=== PATIENT | male | born 1935 | race Caucasian/White ===

== ENCOUNTER 2019-03-24 10:24 | Inpatient (IN) | payer MEDICARE ==
[~2019-03-24] VITALS: Ht 175.3 cm; Wt 79.4 kg
[2019-03-24 10:31] VITALS: BP 139/63
[2019-03-24] MEDS ORDERED: VENTOLIN HFA 1818 GM INH (10:37)
[2019-03-24] MEDS ORDERED: HYTRIN 2MG CAPSU2 M1 PO (10:38)
[2019-03-24] MEDS ORDERED: METOPROLOL SUCC25 M1 PO (10:39)
[2019-03-24] MEDS ORDERED: ATORVASTATIN CA40 MG PO (10:40)
[2019-03-24 10:52] LABS: HEMATOCRIT 37.1 % (42.0-52.0); HEMOGLOBIN 12.5 gm/dL (14.0-18.0); MCHC 33.7 g/dL (28.0-37.0); MCV 89.3 fL (80.0-100.0); MPV 7.2 fl. (7.2-11.1); NUCLEATED RBCS 0 /100WBC; PLATELET COUNT* 201 thou/uL (150-400); RBC 4.15 mil/uL (4.50-6.00); RDW-CV 13.6 % (10.5-14.5); WBC 8.3 thou/uL (4.0-11.0)
[2019-03-24 11:01] LABS: APTT 26.6 Seconds (25.0-31.3); INR 1.1; PROTIME 11.7 Seconds (9.20-11.50)
[2019-03-24 11:15] LABS: ALBUMIN 3.6 g/dL (3.4-5.0); ALKALINE PHOSPHATASE 66 U/L (46-116); ANION GAP 10 mmol/L (7-16); BUN 20 mg/dL (7-18); CALCIUM 8.5 mg/dL (8.5-10.1); CHLORIDE 104 mmol/L (98-107); CO2 26 mmol/L (21-32); CREATININE 1.4 mg/dL (0.6-1.3); GLUCOSE 154 mg/dL (70-99); LIPASE 87 U/L (73-393); MAGNESIUM 1.5 mg/dL (1.8-2.4); NT-PRO BRAIN NAT PEPTIDE 489 pg/mL (<300); POTASSIUM 3.9 mmol/L (3.5-5.1); SGOT 21 U/L (15-37); SGPT 26 U/L (30-65); SODIUM 140 mmol/L (136-145); TOTAL PROTEIN 6.6 g/dL (6.4-8.2); TROPONIN-I LEVEL <0.06 ng/mL (<0.06)
[2019-03-24 11:30] LABS: ABSOLUTE LYMPHOCYTES 0.5 thou/uL (0.8-5.3); ABSOLUTE MONOCYTES 0.5 thou/uL (0.0-1.2); ABSOLUTE NEUTROPHILS 7.3 thou/uL (1.6-8.1)
[2019-03-24 11:34] LABS: PLATELET ESTIMATE ADEQUATE; TOXIC GRANULATION 1+
[2019-03-24 15:41] VITALS: BP 139/63
[2019-03-24 15:50] VITALS: BP 119/52
--- NOTE | 2019-03-24 16:01 | EKG ---
[place] [address] ELECTROCARDIOGRAM REPORT Name: ANETA BYNUM Room: [place] [address] ADM IN [facility].#: [id number] Admission: 03/24/19 Attend Phys: Veronica Rollins MD Discharge: Date of : 37 Report #: [id number] THIS REPORT FOR: //name// 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
[2019-03-24 20:00] VITALS: BP 113/65
[2019-03-25 04:10] VITALS: BP 117/56
[2019-03-25 05:15] LABS: ABSOLUTE LYMPHOCYTES 0.4 thou/uL (0.8-5.3); ABSOLUTE MONOCYTES 0.6 thou/uL (0.0-1.2); ABSOLUTE NEUTROPHILS 8.7 thou/uL (1.6-8.1); BASOPHILS 0.1 %; HEMATOCRIT 34.2 % (42.0-52.0); HEMOGLOBIN 11.7 gm/dL (14.0-18.0); LYMPHOCYTES 4.1 %; MCH 30.2 pg (26.0-34.0); MCHC 34.2 g/dL (28.0-37.0); MCV 88.4 fL (80.0-100.0); MONOCYTES 6.4 %; MPV 7.6 fl. (7.2-11.1); NUCLEATED RBCS 0 /100WBC; PLATELET COUNT* 199 thou/uL (150-400); POLYS 89.4 %; RBC 3.87 mil/uL (4.50-6.00); RDW-CV 13.5 % (10.5-14.5); WBC 9.7 thou/uL (4.0-11.0)
[2019-03-25 05:17] LABS: URINE BILIRUBIN NEGATIVE (Negative); URINE BLOOD NEGATIVE (Negative); URINE CLARITY CLEAR; URINE COLOR YELLOW; URINE GLUCOSE-RANDOM 2+ (Negative); URINE KETONES TRACE (Negative); URINE LEUKOCYTES-REFLEX NEGATIVE (Negative); URINE NITRITE-REFLEX NEGATIVE (Negative); URINE PROTEIN TRACE (Negative); URINE SPECIFIC GRAVITY >= 1.030 (1.005-1.030); URINE UROBILINOGEN 0.2 E.U./dl (0.2-1.0)
[2019-03-25 05:37] LABS: CALCIUM 8.6 mg/dL (8.5-10.1); CREATININE 1.4 mg/dL (0.6-1.3); MAGNESIUM 2.5 mg/dL (1.8-2.4)
[2019-03-25 07:40] VITALS: BP 119/53
[2019-03-25 12:43] VITALS: BP 112/49
--- NOTE | 2019-03-25 13:56 | 2DMMODE ---
[place] [address] 2 D/M-MODE ECHOCARDIOGRAM Name: ANETA BYNUM Room: [address] IN [facility]#: [id number] Admission: 03/24/19 Attend Phys: Veronica Rollins MD Discharge: Date of : 37 Date of Service: 03/25/19 1356 Report #: [id number] THIS REPORT FOR: //name// APPROVED REPORT Study performed: 03/25/2019 11:01:02 EXAM: Comprehensive 2D, Doppler, and color-flow Echocardiogram Patient Location: In-Patient Room #: [facility] Status: routine BSA: 1.95 HR: 65 bpm BP: 119/53 mmHg Rhythm: NSR Other Information Study Quality: Excellent Indications Dyspnea 2D Dimensions IVSd: 12.26 (7-11mm) LVOT Diam: 23.47 (18-24mm) LVDd: 50.37 mm PWd: 11.71 (7-11mm) Ascending Ao: 38.02 (22-36mm) LVDs: 31.39 (25-40mm) Aortic Root: 32.34 mm Volumes Left Atrial Volume (Systole) LA ESV Index: 34.90 mL/m2 Aortic Valve AoV Peak Eleazar.: 1.61 m/s AO Peak Gr.: 10.33 mmHg LVOT Max P.30 mmHg AO Mean Gr.: 5.68 mmHg LVOT Mean P.46 mmHg LVOT Max V: 1.15 m/s AO V2 VTI: 33.87 cm LVOT Mean V: 0.71 m/s [place] (VTI): 3.56 cm2 LVOT V1 VTI: 27.89 cm AI Weld: 1.50 m/s2 AI PHT: 687.45 ms Mitral Valve E/A Ratio: 1.14 [place] [address] 2 D/M-MODE ECHOCARDIOGRAM Name: ANETA BYNUM Room: [address] IN [facility]#: [id number] Admission: 03/24/19 Attend Phys: Veronica Rollins MD Discharge: Date of : 37 Date of Service: 03/25/19 1356 Report #: [id number] MV Decel. Time: 188.55 ms MV E Max Eleazar.: 0.61 m/s MV PHT: 54.68 ms MVA (PHT): 4.02 cm2 TDI E/Lateral E': 6.10 E/Medial E': 6.10 Medial E' Eleazar.: 0.10 m/s Lateral E' Eleazar.: 0.10 m/s Pulmonary Valve PV Peak Eleazar.: 1.19 m/s PV Peak Gr.: 5.68 mmHg Tricuspid Valve RAP Estimate: 5.00 mmHg TR Peak Gr.: 29.34 mmHg RVSP: 34.00 mmHg PA Pressure: 34.00 mmHg Left Ventricle The left ventricle is normal size. There is normal LV segmental wall motion. Mild concentric left ventricular hypertrophy. Left ventricular systolic function is normal. The left ventricular ejection fraction is within the normal range. LVEF is 60-65%. The left ventricular diastolic function is normal. Right Ventricle The right ventricle is normal size. The right ventricular systolic function is normal. Atria Left atrium is mildly dilated. The right atrium size is normal. Aortic Valve Mild aortic valve sclerosis. Trace aortic regurgitation. There is no aortic valvular stenosis. Mitral Valve The mitral valve is normal in structure. There is no mitral valve regurgitation noted. No evidence of mitral valve stenosis. Tricuspid Valve The tricuspid valve is normal in structure. Mild tricuspid regurgitation. estimate pa pressure 35 [place] [address] 2 D/M-MODE ECHOCARDIOGRAM Name: ANETA BYNUM Room: [address]#: [id number] Admission: 03/24/19 Attend Phys: Veronica Rollins MD Discharge: Date of : 37 Date of Service: 03/25/19 1356 Report #: [id number] Pulmonic valve is not well visualized. There is no pulmonic valvular regurgitation. Great Vessels Aortic root is mildly dilated. IVC is normal in size and collapses >50% with inspiration. Pericardium There is no pericardial effusion. <Conclusion> Mild concentric left ventricular hypertrophy. LVEF is 60-65%. Left atrium is mildly dilated. Mild aortic valve sclerosis. <ELECTRONICALLY SIGNED> By: Russell Hill MD, FACC 03/25/19 1356 1356 1356 Russell Hill MD, FACC /INF
[2019-03-25 16:32] VITALS: BP 124/64
[2019-03-25 20:30] VITALS: BP 124/61
[2019-03-26] VITALS: BP 124/59
[2019-03-26 04:00] VITALS: BP 129/68
[2019-03-26 08:10] VITALS: BP 116/68
[2019-03-26] MEDS ORDERED: ADVAIR HFA 230M12 GM INH (11:04)
[2019-03-26] MEDS ORDERED: PREDNISONE 20 M20 MG PO (11:04)
[2019-03-26 11:26] VITALS: BP 126/63
[2019-03-26 11:54] VITALS: BP 126/63
[2019-03-26 12:10] LABS: CALCIUM 8.5 mg/dL (8.5-10.1); CREATININE 1.3 mg/dL (0.6-1.3)
== END 2019-03-26 12:45 | disposition home or self-care (01) | DRG 189 ==
LOC: M.ERS 10:24 → M.TBA-ER 12:22 → M.3W 12:22
PROVIDERS: Family Medicine; ADMIT Family Medicine
DX: J96.21 Acute and chronic respiratory failure with hypoxia (principal); N17.0 Acute kidney failure with tubular necrosis; J44.1 Chronic obstructive pulmonary disease with (acute) exacerbation; N40.0 Benign prostatic hyperplasia without lower urinary tract symptoms; J45.909 Unspecified asthma, uncomplicated; I12.9 Hypertensive chronic kidney disease with stage 1 through stage 4 chronic kidney disease, or unspecified chronic kidney disease; N18.3 Chronic kidney disease, stage 3 (moderate); Z85.51 Personal history of malignant neoplasm of bladder

== ENCOUNTER → 2019-05-21 | Outpatient (CLI) | payer MEDICARE ==
[~2019-05-21] MED LIST: ADVAIR HFA 230M12 GM INH; ATORVASTATIN CA40 MG PO; HYTRIN 2MG CAPSU2 M1 PO; METOPROLOL SUCC25 M1 PO; PREDNISONE 20 M20 MG PO; VENTOLIN HFA 1818 GM INH
== END ==
LOC: M.CT 07:32
DX: J70.3 Chronic drug-induced interstitial lung disorders (principal); J47.9 Bronchiectasis, uncomplicated; J84.10 Pulmonary fibrosis, unspecified